=== PATIENT | male | born 1965 | race Caucasian/White ===

== ENCOUNTER 2019-05-02 11:58 | Outpatient (REF) | payer MEDICAID, SELFPAY ==
[2019-05-02 19:05] LABS: ALT 34 U/L (16-63); AST 60 U/L (15-37); Albumin 3.2 g/dL (3.4-5.0); Alkaline Phosphatase 120 U/L (46-116); Amylase 78 U/L (25-115); Anion Gap 7.4 mmol/L (3-11); BUN 7 mg/dL (7-18); Bilirubin, Direct 0.87 mg/dL (0.00-0.20); Bilirubin, Total 3.3 mg/dL (0.2-1.0); CO2 28.6 mmol/L (21.0-32.0); CREATININE 1.06 mg/dL (0.70-1.30); Calcium 8.5 mg/dL (8.5-10.1); Chloride 105 mmol/L (98-107); Glucose 112 mg/dL (74-106); Lipase 144 U/L (73-393); Potassium 3.6 mmol/L (3.5-5.1); Sodium 141 mmol/L (136-145); Total Protein 7.1 g/dL (6.4-8.2)
[2019-05-02 19:08] LABS: Hemoglobin A1C 6.3 % (3.8-5.6)
[2019-05-02 19:20] LABS: Calculated LDL 95 mg/dL (<100); Cholesterol 160 mg/dL (<200); HDL Cholesterol 48 mg/dL (40-60); Triglyceride 89 mg/dL (<150)
== END 2019-05-02 12:18 ==
LOC: NCHCN 11:58
PROVIDERS: PCP Nurse Practitioner Family; Visit Provider Nurse Practitioner Family
DX: R74.8 Abnormal levels of other serum enzymes (principal); K82.9 Disease of gallbladder, unspecified; Z13.220 Encounter for screening for lipoid disorders
CPT/HCPCS: 80053; 80061; 80076; 83690; 82150; 83036

== ENCOUNTER 2019-12-20 18:22 | Outpatient (REF) | payer MEDICAID, SELFPAY ==
[2019-12-20 19:04] LABS: ALT 38 U/L (16-63); AST 64 U/L (15-37); Albumin 3.2 g/dL (3.4-5.0); Alkaline Phosphatase 140 U/L (46-116); Anion Gap 6.3 mmol/L (3-11); BUN 7 mg/dL (7-18); Bilirubin, Direct 0.95 mg/dL (0.00-0.20); Bilirubin, Total 2.8 mg/dL (0.2-1.0); CO2 28.7 mmol/L (21.0-32.0); Chloride 103 mmol/L (98-107); Glucose 107 mg/dL (74-106); Potassium 3.4 mmol/L (3.5-5.1); Sodium 138 mmol/L (136-145); Total Protein 7.1 g/dL (6.4-8.2)
== END 2019-12-20 18:42 ==
LOC: NCHCN 18:22
PROVIDERS: PCP Nurse Practitioner Family; Visit Provider Nurse Practitioner Family
DX: I10 Essential (primary) hypertension (principal); K74.60 Unspecified cirrhosis of liver
CPT/HCPCS: 80048; 80076

== ENCOUNTER 2020-06-19 15:36 | Outpatient (REF) | payer MEDICAID, SELFPAY ==
[2020-06-19 19:24] LABS: ALT 41 U/L (16-63); AST 64 U/L (15-37); Albumin 2.9 g/dL (3.4-5.0); Alkaline Phosphatase 199 U/L (46-116); Anion Gap 6.9 mmol/L (3-11); BUN 7 mg/dL (7-18); Bilirubin, Total 2.2 mg/dL (0.2-1.0); CO2 28.1 mmol/L (21.0-32.0); CREATININE 1.1 mg/dL (0.70-1.30); Calcium 8.4 mg/dL (8.5-10.1); Calculated LDL 87 mg/dL (<100); Chloride 108 mmol/L (98-107); Cholesterol 171 mg/dL (<200); Glucose 105 mg/dL (74-106); HDL Cholesterol 67 mg/dL (40-60); Potassium 4.1 mmol/L (3.5-5.1); Sodium 143 mmol/L (136-145); Total Protein 6.5 g/dL (6.4-8.2); Triglyceride 87 mg/dL (<150)
[2020-06-19 19:31] LABS: Hemoglobin A1C 5.5 % (<5.7)
[2020-06-19 19:53] LABS: Bilirubin, Direct 0.7 mg/dL (0.0-0.2)
== END 2020-06-19 15:37 | disposition home or self-care (01) ==
LOC: NCHCN 15:36
PROVIDERS: PCP Nurse Practitioner Family; Visit Provider Nurse Practitioner Family
DX: R73.03 Prediabetes (principal); I10 Essential (primary) hypertension; R74.8 Abnormal levels of other serum enzymes; Z13.220 Encounter for screening for lipoid disorders
CPT/HCPCS: 80048; 80061; 80076; 83036

== ENCOUNTER 2021-05-09 19:27 | Outpatient (REF) | payer MEDICAID, SELFPAY ==
[2021-05-09 19:36] LABS: ALT 46 U/L (16-63); AST 56 U/L (15-37); Alkaline Phosphatase 119 U/L (46-116); Anion Gap 6.8 mmol/L (3-11); BUN 20 mg/dL (7-18); Bilirubin, Total 1.9 mg/dL (0.2-1.0); CO2 27.2 mmol/L (21.0-32.0); CREATININE 1.6 mg/dL (0.70-1.30); Calcium 9.1 mg/dL (8.5-10.1); Chloride 101 mmol/L (98-107); Glucose 114 mg/dL (74-106); Potassium 4.2 mmol/L (3.5-5.1); Sodium 135 mmol/L (136-145)
== END 2021-05-09 19:28 | disposition home or self-care (01) ==
LOC: NCHCN 19:27
PROVIDERS: PCP Nurse Practitioner Family; Visit Provider Physician Assistant
DX: I10 Essential (primary) hypertension (principal); K74.60 Unspecified cirrhosis of liver
CPT/HCPCS: 80053

== ENCOUNTER 2022-07-29 15:37 | Outpatient (REF) | payer MEDICAID, SELFPAY ==
[2022-07-29 19:30] LABS: HCT 37.2 % (40.0-50.0); HGB 12.9 g/dL (13.5-17.5); MCH 33.2 pg (27.0-33.0); MCHC 34.7 % (32.0-36.0); MCV 96 fL (80-95); RBC 3.88 10^6/uL (4.36-5.78); RDW 13.2 % (11.8-14.1); RDW-SD 46.3 fL; WBC 3.85 10^3/uL (4.4-10.8)
[2022-07-29 19:36] LABS: ALT 36 U/L (16-63); AST 57 U/L (15-37); Albumin 3.1 g/dL (3.4-5.0); Alkaline Phosphatase 139 U/L (46-116); Anion Gap 4.1 mmol/L (3-11); BUN 12 mg/dL (7-18); Bilirubin, Total 1.8 mg/dL (0.2-1.0); CO2 27.9 mmol/L (21.0-32.0); CREATININE 1.4 mg/dL (0.70-1.30); Calcium 8.7 mg/dL (8.5-10.1); Chloride 103 mmol/L (98-107); Estimated GFR 58.99 (mL/min/1.73m2); Glucose 221 mg/dL (74-106); Potassium 3.7 mmol/L (3.5-5.1); Sodium 135 mmol/L (136-145); Total Protein 6.7 g/dL (6.4-8.2)
[2022-07-29 20:14] LABS: Platelet Count 76 10^3/uL (130-400)
[2022-07-30 12:34] LABS: Hemoglobin A1C 5.6 % (<5.7)
== END 2022-07-29 15:38 | disposition home or self-care (01) ==
LOC: NCHCN 15:37
PROVIDERS: PCP Nurse Practitioner Family; Visit Provider Physician Assistant
DX: R73.03 Prediabetes (principal)
CPT/HCPCS: 80053; 85027; 83036